=== PATIENT | male | born 1960 | race Caucasian/White ===

== ENCOUNTER 2016-09-10 10:08 | Day surgery (SDC) | payer OTHER ==
[~2016-09-10] VITALS: Ht 182.9 cm; Wt 132.8 kg
[2016-09-10 10:51] VITALS: BP 142/86; PULSE 83; TEMP 98.1
[2016-09-10] MEDS ORDERED: AMBIEN 5MG TABLE5 MG PO (11:08)
[2016-09-10] MEDS ORDERED: NORVASC 5MG5 MG/TAB PO (11:09)
[2016-09-10] MEDS ORDERED: LIPITOR 40MG TA40 MG PO (11:09)
[2016-09-10] MEDS ORDERED: ANTACID200 MG PO (11:11)
[2016-09-10] MEDS ORDERED: EFFEXOR XR75 MG/CAP PO (11:11)
[2016-09-10] MEDS ORDERED: HCTZ 25MG TAB25 MG PO (11:12)
[2016-09-10] MEDS ORDERED: FLOMAX 0.40.4 MG/CAP PO (11:12)
[2016-09-10] MEDS ORDERED: MULTI VITAMINS1 TAB PO (11:13)
[2016-09-10] MEDS ORDERED: TRICOR145 MG PO (11:14)
[2016-09-10] MEDS ORDERED: OSTEO-BI-FLEX 21 TAB PO (11:14)
[2016-09-10] MEDS ORDERED: XARELTO20 MG PO (11:15)
[2016-09-10 11:48] VITALS: BP 114/80; PULSE 79; TEMP 97.1
[2016-09-10 12:00] VITALS: BP 116/91; PULSE 79
[2016-09-10 12:25] VITALS: BP 121/88; PULSE 74
[2016-09-10 13:07] VITALS: BP 107/71; PULSE 81
== END 2016-09-10 12:27 | disposition home or self-care (01) ==
LOC: SDCO 10:08
DX: Z12.11 Encounter for screening for malignant neoplasm of colon (principal); K63.5 Polyp of colon; Z86.010 Personal history of colon polyps; Z79.899 Other long term (current) drug therapy; Z79.01 Long term (current) use of anticoagulants; Z79.82 Long term (current) use of aspirin
CPT/HCPCS: J2250; J3010; J7030

== ENCOUNTER 2017-08-17 14:29 | Outpatient (CLI) | payer OTHER ==
[~2017-08-17] VITALS: Ht 182.9 cm; Wt 129.5 kg
[~2017-08-17 14:29] MED LIST: AMBIEN 5MG TABLE5 MG PO; ANTACID200 MG PO; EFFEXOR XR75 MG/CAP PO; FLOMAX 0.40.4 MG/CAP PO; HCTZ 25MG TAB25 MG PO; LIPITOR 40MG TA40 MG PO; MULTI VITAMINS1 TAB PO; NORVASC 5MG5 MG/TAB PO; OSTEO-BI-FLEX 21 TAB PO; TRICOR145 MG PO; XARELTO20 MG PO
[2017-08-17 15:13] LABS: COLLECTION METHOD CLEAN CATCH
[2017-08-17 15:15] VITALS: BP 146/85; PULSE 85; TEMP 98.9
[2017-08-17] MEDS ORDERED: DESYREL 100MG100 MG PO (15:23)
[2017-08-17 15:24] LABS: MUCOUS Present /lpf; PH 7 (5-8); SQUAMOUS EPITHELIAL None Seen /hpf; URINE APPEARANCE Cloudy; URINE BACTERIA Rare /hpf; URINE BILIRUBIN Negative (NEGATIVE); URINE BLOOD 2+ (NEGATIVE); URINE COLOR Yellow; URINE GLUCOSE Negative (NEGATIVE); URINE KETONE Negative (NEGATIVE); URINE LEUKOCYTE ESTERASE Negative (NEGATIVE); URINE NITRATE Negative (NEGATIVE); URINE PROTEIN(semi-quant) Negative (NEGATIVE); URINE RBC >50 /hpf; URINE UROBILINOGEN Negative (NEGATIVE)
[2017-08-17 15:52] LABS: BASO % 0.6 % (0.0-2.0); EOS % 0.8 % (0-4.0); GRAN # 3.2 (1.4-6.5); GRAN % 60.8 % (42.2-75.2); HEMATOCRIT 43.9 % (42.0-52.0); HEMOGLOBIN 14.6 g/dl (13.5-18.0); LYMPH # 1.3 (1.2-3.4); LYMPH % 24.4 % (20.0-51.0); MEAN CELL VOLUME 87 fl (80.0-100.0); MEAN CORPUSCULAR HEMOGLOBIN 29 pg (27.0-31.0); MEAN CORPUSCULAR HGB CONC 33 g/dl (33.0-37.0); MEAN PLATELET VOLUME 10.5 fl (7.4-10.4); MONO # 0.7 (0.1-0.6); PLATELET COUNT 221 K/mm3 (130-400); RED BLOOD COUNT 5.04 M/mm3 (4.20-5.60); REDCELL DISTRIBUTION WIDTH-CV 13.7 % (11.5-14.5)
[2017-08-17 16:03] LABS: ALANINE AMINOTRANSFERASE 38 U/L (21-72); ALBUMIN 4.4 gm/dL (3.5-5.0); ALKALINE PHOSPHATASE 72 U/L (50-136); ANION GAP 11 mmol/L (7-16); AST,SGOT 29 U/L (15-37); BILIRUBIN,TOTAL 0.8 mg/dL (0.0-1.0); BLOOD UREA NITROGEN 13 mg/dL (9-20); CALCIUM 10.2 mg/dL (8.4-10.2); CARBON DIOXIDE 24 mmol/L (22-30); CHLORIDE 104 mmol/L (98-107); CREATININE, serum 1.02 mg/dL (0.66-1.25); GLUCOSE 98 mg/dL (74-106); LIPASE 91 U/L (23-300); POTASSIUM 3.7 mmol/L (3.4-5.0); SODIUM 139 mmol/L (137-145); TOTAL PROTEIN 7.3 gm/dL (6.4-8.2)
[2017-08-17 16:07] LABS: C-REACTIVE PROTEIN < 0.5 mg/dL (0.0-0.9)
[2017-08-17 16:12] LABS: TROPONIN-I < 0.012 ng/mL (0.000-0.034)
[2017-08-17 16:30] LABS: ERYTHROCYTE SEDIMENTATION RATE 6 mm/hr (0-30)
== END 2017-08-17 19:08 | disposition home or self-care (01) ==
LOC: EUO 14:29
PROVIDERS: Internal Medicine
DX: I95.1 Orthostatic hypotension (principal); R11.2 Nausea with vomiting, unspecified; Z68.38 Body mass index [BMI] 38.0-38.9, adult
CPT/HCPCS: J7030

== ENCOUNTER → 2017-08-18 | Outpatient (CLI) | payer OTHER ==
[~2017-08-18] MED LIST changes: +DESYREL 100MG100 MG PO
== END ==
LOC: COL.RAD 13:32
DX: N28.1 Cyst of kidney, acquired (principal); K57.30 Diverticulosis of large intestine without perforation or abscess without bleeding; N28.89 Other specified disorders of kidney and ureter
CPT/HCPCS: Q9967

== ENCOUNTER → 2018-03-07 | Outpatient (CLI) | payer OTHER | LOC: COL.RAD 13:23 | DX: N20.0 Calculus of kidney (principal) | CPT/HCPCS: G0103 ==